=== PATIENT | male | born 1960 | race Caucasian/White ===

== ENCOUNTER 2016-11-27 16:55 | Emergency (ER) | payer OTHER ==
--- NOTE | ~2016-11-27 | ER ---
PATIENT'S NAME: EDIN JUNE [facility] AGE: 56 Y [address] ROOM: [place], [place] [address] LOCATION: [facility] ADMIT DATE: 11/27/2016 ER/Outpatient Report DISCHARGE DATE: 11/27/2016 FAMILY PHYSICIAN: Carmelo Jeffery MD ATTENDING PHYSICIAN: Jeremiah Holder TIME SEEN: 1750 hours. CHIEF COMPLAINT: Foreign body in the left forearm. HISTORY OF PRESENT ILLNESS: The patient states approximately 2 hours prior to arrival he was using a instrument lens grinder with bristles and one of the bristles came off and went into his left forearm. He states that he did see where it when in and he did try and grab it with some needle-nose pliers and pull it out, but was unsuccessful. It is very tender in that area. He denies having any numbness or tingling in the fingers. He has not been ill in anyway prior to this incident. ALLERGIES: NO KNOWN ALLERGIES. CURRENT MEDICATIONS: Include medications for hypothyroidism. PAST MEDICAL HISTORY: Hypothyroidism. PAST SURGERIES: Back surgery in the and left shoulder surgery 2 years ago. SOCIAL HISTORY: He lives at home with his . Denies use of tobacco, drugs, or alcohol. Unsure of his last tetanus shot somewhere between 5 and 10 years ago. REVIEW OF SYSTEMS: All negative other than those mentioned in the HPI. PHYSICAL EXAMINATION: VITAL SIGNS: He weighed 8.9 kg. Blood pressure is 130/79, pulse of 50, respirations 18, temp of 97.5, and O2 sat was 96% on room air. GENERAL: He is awake, alert, and oriented x4. SKIN: [place], warm, and dry. RESPIRATIONS: Even and nonlabored. Lung sounds were clear throughout. PATIENT'S NAME: EDIN JUNE [facility] AGE: 56 Y [address] ROOM: [place], [place] [address] LOCATION: [facility] ADMIT DATE: 11/27/2016 ER/Outpatient Report DISCHARGE DATE: 11/27/2016 FAMILY PHYSICIAN: Carmelo Jeffery MD ATTENDING PHYSICIAN: Jeremiah Holder HEART: Regular rate and rhythm. MUSCULOSKELETAL: No deformity of the left forearm is noted. He has strong radial and ulnar pulses on the left. He has good sensation to his fingers on the left. EMERGENCY DEPARTMENT COURSE: X-ray was completed. Foreign body is seen. The patient's heart rate did drop while he was here resting to a rate of 45. The nurse did do an EKG that shows sinus kristin and was reviewed with Dr. Thomson. X-ray was reviewed with Dr. Thomson. Area was cleansed well with saline and Betadine and anesthetized with 1% lidocaine with epinephrine. An approximately 0.5 cm incision was made in the area of the foreign body to the left forearm with a #11 blade. Area was irrigated. The foreign body was not found with exploration of area, unable to feel it. Dr. Thomson did do ultrasound to the area to help pinpoint location. Area was explored more with forceps and foreign body was removed. The patient tolerated the procedure well. Area was cleansed well with saline and Betadine. Incision was closed with 4-0 Ethilon x1 stitch. The patient tolerated the procedure well. Tetanus was updated with a Tdap. IMPRESSION: Removal of foreign body. PLAN: Home, rest, keep the areas clean and dry as possible. Prescription was written for Keflex. He is to have the stitches removed in 5-7 days. See his primary provider sooner if symptoms develop in the next 2-3 days. He verbalized understanding. TYLER SWANSON APRN FOR MD TAMI RILEY/simona /[id number] d: 11/27/16 2335 t: 11/30/16 1827, OUTPATIENT REPORT
[~2016-11-27 16:55] MED LIST: ADVIL200 MG PO; LEVOTHROID(SY175 MCG PO
== END 2016-11-27 19:10 | disposition disaster alternative care site (69) ==
LOC: GACC 16:55
PROC: 0HCEXZZ Extirpation of Matter from Left Lower Arm Skin, External Approach (ICD-10-PCS; principal; 2016-11-27)
DX: S50.852A Superficial foreign body of left forearm, initial encounter (principal); Z23 Encounter for immunization; E03.9 Hypothyroidism, unspecified; W31.89XA Contact with other specified machinery, initial encounter